=== PATIENT | male | born 1965 | race Caucasian/White ===

== ENCOUNTER 2019-08-07 15:19 | Outpatient (CLI) | payer BC ==
[~2019-08-07] VITALS: Ht 175.3 cm; Wt 85.0 kg
[~2019-08-07 15:19] MED LIST: CEPH500C PO; OXYC1TAB19 PO
[2019-08-07] MEDS ORDERED: PANT40TA3 PO (15:28)
== END 2019-08-07 15:29 | disposition home or self-care (01) ==
LOC: PREOP 15:19
PROVIDERS: ATTEND Surgery
DX: Z01.818 Encounter for other preprocedural examination (principal)